=== PATIENT | female | born 1930 | race Two or more races ===

== ENCOUNTER 2020-03-14 16:38 | Inpatient (IN) | payer OTHER ==
[~2020-03-14] VITALS: Ht 157.5 cm; Wt 70.0 kg
[2020-03-14] MEDS ORDERED: SODIUM CHLORIDE 0.9% 1,000 ML IVB ONE (17:00)
[2020-03-14] MEDS ORDERED: ONDANSETRON HCL 4 MG/2 ML VIAL ONE (18:18)
[2020-03-14] MEDS ORDERED: MORPHINE SULF INJ 2 MG/ML SYRINGE 1ML ONE (18:18)
[2020-03-14 18:54] LABS: Basophils # (auto) 0 10 ^3/uL (0-0.2); Basophils % (auto) 0.3 % (0.0-2.0); Eosinophils # (auto) 0 10 ^3/uL (0-0.8); Eosinophils % (auto) 0.1 % (0.0-7.0); Hematocrit 37.4 % (36.0-46.0); Hemoglobin 12.3 g/dL (12.2-16.2); Lymphocytes # (auto) 0.8 10 ^3/uL (0.4-5.4); Lymphocytes % (auto) 6.5 % (10.0-50.0); Mean Corpuscular Hemoglobin 32.1 pg (28.0-32.0); Mean Corpuscular Hgb Conc. 32.9 g/dL (32.0-36.0); Mean Corpuscular Volume 97.6 fL (80.0-100.0); Monocytes # (auto) 0.8 10 ^3/uL (0-1.3); Monocytes % (auto) 6.3 % (0.0-12.0); Neutrophils # (auto) 11.2 10 ^3/uL (1.6-8.6); Neutrophils % (auto) 86.8 % (37.0-80.0); Platelet Count (auto) 249 10^3/uL (140-450); Red Blood Cells 3.83 10^6/uL (4.0-5.20); Red Cell Distribution Width 13.1 % (11.8-14.3); White Blood Cell 12.8 10^3/uL (4.4-10.8)
[2020-03-14 19:03] LABS: Urine Bacteria NONE SEEN /hpf (None Seen); Urine Blood TRACE /uL (Negative); Urine Mucus FEW (None Seen); Urine Specific Gravity 1.023 (1.001-1.035); Urine WBC 2 /hpf (0 - 5)
[2020-03-14 19:13] LABS: INR 1.02 (0.9-1.15); Partial Thromboplastin Time 22.2 sec (23.0-31.2)
[2020-03-14] MEDS ORDERED: MORPHINE SULF INJ 2 MG/ML SYRINGE 1ML IV ONE (19:15)
[2020-03-14] MEDS ORDERED: ONDANSETRON HCL 4 MG/2 ML VIAL IV ONE (19:15)
[2020-03-14 19:35] LABS: Albumin 3.7 g/dL (3.4-5.0); Anion Gap 6 (5-15); Blood Urea Nitrogen 18 mg/dL (7-18); Calcium 8.5 mg/dL (8.5-10.1); Carbon Dioxide 28 mmol/L (21-32); Chloride 106 mmol/L (98-107); Glucose 158 mg/dL (74-106); Magnesium 2.2 mg/dL (1.6-2.6); Potassium 3.4 mmol/L (3.5-5.1); Sodium 140 mmol/L (136-145)
[2020-03-14 19:42] LABS: Alanine Aminotransferase 18 U/L (13-56); Alkaline Phosphatase 46 U/L (45-117); Aspartate Aminotransferase 22 U/L (15-37); BUN/Creatinine Ratio 17.5; Bilirubin, Total 0.6 mg/dL (0.2-1.0); GFR African American 65 mL/min; GFR Non-African American 54 mL/min; Total Protein 6.4 g/dL (6.4-8.2)
[2020-03-14] MEDS ORDERED: MAGNESIUM OXIDE 400 MG TAB PO ONE (19:45)
[2020-03-14] MEDS ORDERED: ACETAMINOPHEN 325 MG TAB PO PRN (21:45)
[2020-03-14] MEDS ORDERED: DOCUSATE SOD 100 MG CAP PO PRN (21:45)
[2020-03-14] MEDS: SODIUM CHLORIDE 0.9% 1,000 ML IV SCH (21:45)
[2020-03-14] MEDS ORDERED: MORPHINE SULF INJ 2 MG/ML SYRINGE 1ML IV PRN (21:45)
[2020-03-14] MEDS ORDERED: NITROGLYCERIN 0.4 MG SL TAB SL PRN (21:45)
[2020-03-14] MEDS ORDERED: POTASSIUM CHL 20 Meq TABLET PO ONE (22:00)
[2020-03-14] MEDS: ONDANSETRON HCL 4 MG/2 ML VIAL IV PRN (22:17)
[2020-03-14] MEDS: MORPHINE SULFATE 4 MG/ML SYR/VIAL IV PRN ×2 (22:17→22:57)
[2020-03-14] MEDS: ASCORBIC ACID 500 MG TAB PO SCH (22:21)
[2020-03-15] MEDS: MORPHINE SULFATE 4 MG/ML SYR/VIAL IV PRN (02:43)
[2020-03-15] MEDS: ONDANSETRON HCL 4 MG/2 ML VIAL IV PRN ×3 (03:01→21:07)
[2020-03-15 05:00] VITALS: BP 142/57
[2020-03-15 07:20] LABS: Basophils # (auto) 0 10 ^3/uL (0-0.2); Basophils % (auto) 0.1 % (0.0-2.0); Eosinophils # (auto) 0 10 ^3/uL (0-0.8); Hematocrit 30.7 % (36.0-46.0); Hemoglobin 10.1 g/dL (12.2-16.2); Lymphocytes # (auto) 0.7 10 ^3/uL (0.4-5.4); Lymphocytes % (auto) 7.1 % (10.0-50.0); Mean Corpuscular Hemoglobin 32.3 pg (28.0-32.0); Mean Corpuscular Volume 97.8 fL (80.0-100.0); Monocytes # (auto) 0.8 10 ^3/uL (0-1.3); Monocytes % (auto) 8.2 % (0.0-12.0); Neutrophils # (auto) 8.1 10 ^3/uL (1.6-8.6); Neutrophils % (auto) 84.6 % (37.0-80.0); Platelet Count (auto) 217 10^3/uL (140-450); Red Blood Cells 3.14 10^6/uL (4.0-5.20); Red Cell Distribution Width 13.1 % (11.8-14.3); White Blood Cell 9.6 10^3/uL (4.4-10.8)
[2020-03-15 07:23] LABS: Albumin 3.1 g/dL (3.4-5.0)
[2020-03-15 07:32] LABS: Bilirubin, Total 0.7 mg/dL (0.2-1.0); Calcium 8.2 mg/dL (8.5-10.1); Total Protein 5.7 g/dL (6.4-8.2)
[2020-03-15] MEDS ORDERED: ALEN70TA2 PO (08:43)
[2020-03-15] MEDS ORDERED: ATO40T PO (08:43)
[2020-03-15] MEDS ORDERED: MAGN400T40 PO (08:43)
[2020-03-15 09:00] VITALS: BP 130/62
[2020-03-15] MEDS: ASCORBIC ACID 500 MG TAB PO SCH ×2 (09:44→22:00)
[2020-03-15] MEDS: MULTIPLE VITAMIN TAB PO SCH (09:44)
[2020-03-15] MEDS: PANTOPRAZOLE 40 MG/10 ML VIAL INJ IV SCH (09:45)
[2020-03-15] MEDS: ZINC SULFATE 220mg CAP or TAB PO SCH (10:00)
[2020-03-15] MEDS ORDERED: ENOXAPARIN SOD 40 MG/0.4 ML SYRINGE SC SCH (10:00)
[2020-03-15] MEDS ORDERED: VANCOMYCIN 1GM/250ML 250 ML IV SCH (10:00)
[2020-03-15] MEDS: HYDROmorphone HCL 2 MG/ML VL IV PRN ×2 (10:35→21:06)
[2020-03-15] MEDS ORDERED: levoFLOXacin 500MG 100 ML IV ONE (11:30)
[2020-03-15 13:00] VITALS: BP 122/50
[2020-03-15] MEDS: SODIUM CHLORIDE 0.9% 1,000 ML IV SCH (15:21)
[2020-03-15 17:00] VITALS: BP 116/45
[2020-03-15 22:00] VITALS: BP 99/47
[2020-03-15] MEDS: ATORVASTATIN 20 MG TAB PO SCH (22:00)
[2020-03-16 05:00] VITALS: BP 103/45
[2020-03-16] MEDS: ONDANSETRON HCL 4 MG/2 ML VIAL IV PRN ×2 (07:04→08:20)
[2020-03-16] MEDS: HYDROmorphone HCL 2 MG/ML VL IV PRN ×2 (07:04→17:45)
[2020-03-16] MEDS: SODIUM CHLORIDE 0.9% 1,000 ML IV SCH ×2 (07:05→23:45)
[2020-03-16 09:00] VITALS: BP 101/47
[2020-03-16] MEDS: ASCORBIC ACID 500 MG TAB PO SCH ×2 (10:00→21:51)
[2020-03-16] MEDS ORDERED: levoFLOXacin 500MG 100 ML IV SCH (10:00)
[2020-03-16] MEDS: MAGNESIUM OXIDE 400 MG TAB PO SCH (10:29)
[2020-03-16] MEDS: ZINC SULFATE 220mg CAP or TAB PO SCH (10:29)
[2020-03-16] MEDS: PANTOPRAZOLE 40 MG/10 ML VIAL INJ IV SCH (10:29)
[2020-03-16] MEDS: levoFLOXacin 250MG 50 ML IV SCH (10:29)
[2020-03-16] MEDS: MULTIPLE VITAMIN TAB PO SCH (10:29)
[2020-03-16 13:00] VITALS: BP 114/45
[2020-03-16 16:41] VITALS: BP 103/45
[2020-03-16 21:00] VITALS: BP 113/48
[2020-03-16] MEDS: ATORVASTATIN 20 MG TAB PO SCH (21:51)
[2020-03-16] MEDS: HYDROcodone-ACET 5/325MG TAB PO PRN (22:33)
[2020-03-17] VITALS (13 sets, daily range): BP systolic 101–125; BP diastolic 41–57
[2020-03-17 07:57] LABS: Basophils # (auto) 0 10 ^3/uL (0-0.2); Monocytes # (auto) 1.2 10 ^3/uL (0-1.3); Monocytes % (auto) 8.8 % (0.0-12.0)
[2020-03-17 07:58] LABS: Basophils % (auto) 0.2 % (0.0-2.0); Eosinophils # (auto) 0 10 ^3/uL (0-0.8); Eosinophils % (auto) 0.4 % (0.0-7.0); Hematocrit 22.8 % (36.0-46.0); Hemoglobin 7.7 g/dL (12.2-16.2); Lymphocytes # (auto) 1.1 10 ^3/uL (0.4-5.4); Lymphocytes % (auto) 8.5 % (10.0-50.0); Mean Corpuscular Hemoglobin 32.7 pg (28.0-32.0); Mean Corpuscular Hgb Conc. 33.6 g/dL (32.0-36.0); Mean Corpuscular Volume 97.4 fL (80.0-100.0); Neutrophils # (auto) 10.7 10 ^3/uL (1.6-8.6); Neutrophils % (auto) 82.1 % (37.0-80.0); Platelet Count (auto) 162 10^3/uL (140-450); Red Blood Cells 2.34 10^6/uL (4.0-5.20); Red Cell Distribution Width 13.3 % (11.8-14.3)
[2020-03-17] MEDS: MAGNESIUM OXIDE 400 MG TAB PO SCH (09:06)
[2020-03-17] MEDS: PANTOPRAZOLE 40 MG/10 ML VIAL INJ IV SCH (09:06)
[2020-03-17] MEDS: ZINC SULFATE 220mg CAP or TAB PO SCH (09:06)
[2020-03-17] MEDS: MULTIPLE VITAMIN TAB PO SCH (09:06)
[2020-03-17] MEDS: levoFLOXacin 250MG 50 ML IV SCH (09:06)
[2020-03-17] MEDS: ASCORBIC ACID 500 MG TAB PO SCH ×2 (09:07→22:11)
[2020-03-17] MEDS: HYDROcodone-ACET 5/325MG TAB PO PRN ×2 (11:34→15:54)
[2020-03-17] MEDS ORDERED: ADENOSINE 65 MG in GIVE UN-DILUTED 0 ML IV STA (11:37)
[2020-03-17] MEDS: HYDROmorphone HCL 2 MG/ML VL IV PRN ×2 (13:43→22:13)
[2020-03-17] MEDS: SODIUM CHLORIDE 0.9% 1,000 ML IV SCH ×2 (16:06→23:45)
[2020-03-17] MEDS: ATORVASTATIN 20 MG TAB PO SCH (22:11)
[2020-03-17] MEDS: ONDANSETRON HCL 4 MG/2 ML VIAL IV PRN (22:13)
[2020-03-18 05:00] VITALS: BP 124/57
[2020-03-18 05:43] LABS: Basophils # (auto) 0 10 ^3/uL (0-0.2); Basophils % (auto) 0.3 % (0.0-2.0); Eosinophils # (auto) 0.2 10 ^3/uL (0-0.8); Eosinophils % (auto) 1.8 % (0.0-7.0); Hemoglobin 9.7 g/dL (12.2-16.2); Lymphocytes # (auto) 1.2 10 ^3/uL (0.4-5.4); Lymphocytes % (auto) 10.1 % (10.0-50.0); Mean Corpuscular Hemoglobin 31.9 pg (28.0-32.0); Mean Corpuscular Hgb Conc. 33.3 g/dL (32.0-36.0); Mean Corpuscular Volume 95.7 fL (80.0-100.0); Monocytes # (auto) 1.1 10 ^3/uL (0-1.3); Monocytes % (auto) 9.5 % (0.0-12.0); Neutrophils # (auto) 9.4 10 ^3/uL (1.6-8.6); Neutrophils % (auto) 78.3 % (37.0-80.0); Platelet Count (auto) 167 10^3/uL (140-450); Red Blood Cells 3.03 10^6/uL (4.0-5.20); Red Cell Distribution Width 15.3 % (11.8-14.3); White Blood Cell 12.1 10^3/uL (4.4-10.8)
[2020-03-18 06:06] LABS: Albumin 2.2 g/dL (3.4-5.0); Calcium 7.7 mg/dL (8.5-10.1); Potassium 3.9 mmol/L (3.5-5.1)
[2020-03-18 06:09] LABS: BUN/Creatinine Ratio 24.1; Bilirubin, Total 1.1 mg/dL (0.2-1.0); Total Protein 5.3 g/dL (6.4-8.2)
[2020-03-18] MEDS: HYDROmorphone HCL 2 MG/ML VL IV PRN ×3 (06:44→21:18)
[2020-03-18] MEDS: ONDANSETRON HCL 4 MG/2 ML VIAL IV PRN (06:44)
[2020-03-18 09:00] VITALS: BP 107/48
[2020-03-18] MEDS: PANTOPRAZOLE 40 MG TAB PO SCH (11:46)
[2020-03-18] MEDS: ASCORBIC ACID 500 MG TAB PO SCH ×2 (11:46→21:17)
[2020-03-18] MEDS: MULTIPLE VITAMIN TAB PO SCH (11:46)
[2020-03-18] MEDS: SODIUM CHLORIDE 0.9% 1,000 ML IV SCH ×3 (11:46→23:45)
[2020-03-18] MEDS: levoFLOXacin 250 MG TAB PO SCH (11:46)
[2020-03-18] MEDS: ZINC SULFATE 220mg CAP or TAB PO SCH (11:46)
[2020-03-18] MEDS: MAGNESIUM OXIDE 400 MG TAB PO SCH (11:46)
[2020-03-18] MEDS: HYDROcodone-ACET 5/325MG TAB PO PRN (11:47)
[2020-03-18] MEDS ORDERED: ADENOSINE 67 MG in GIVE UN-DILUTED 0 ML IV STA (12:40)
[2020-03-18 13:00] VITALS: BP 127/55
[2020-03-18 16:19] VITALS: BP 111/47
[2020-03-18] MEDS: ATORVASTATIN 20 MG TAB PO SCH (21:18)
[2020-03-18 22:00] VITALS: BP 120/54
[2020-03-19] VITALS (7 sets, daily range): BP systolic 110–156; BP diastolic 44–81
[2020-03-19] MEDS: HYDROcodone-ACET 5/325MG TAB PO PRN ×2 (00:49→09:45)
[2020-03-19] MEDS: HYDROmorphone HCL 2 MG/ML VL IV PRN (06:03)
[2020-03-19] MEDS: SODIUM CHLORIDE 0.9% 1,000 ML IV SCH ×3 (07:45→23:45)
[2020-03-19] MEDS ORDERED: CARVEDILOL 3.125 MG TAB PO ONE (09:15)
[2020-03-19] MEDS ORDERED: ATORVASTATIN 20 MG TAB PO ONE (09:15)
[2020-03-19 09:31] LABS: Basophils # (auto) 0.1 10 ^3/uL (0-0.2); Basophils % (auto) 0.6 % (0.0-2.0); Eosinophils # (auto) 0.1 10 ^3/uL (0-0.8); Eosinophils % (auto) 0.8 % (0.0-7.0); Hematocrit 32.5 % (36.0-46.0); Hemoglobin 10.7 g/dL (12.2-16.2); Lymphocytes # (auto) 0.8 10 ^3/uL (0.4-5.4); Lymphocytes % (auto) 6.8 % (10.0-50.0); Mean Corpuscular Hemoglobin 31.2 pg (28.0-32.0); Mean Corpuscular Hgb Conc. 32.9 g/dL (32.0-36.0); Mean Corpuscular Volume 94.9 fL (80.0-100.0); Monocytes # (auto) 1.1 10 ^3/uL (0-1.3); Monocytes % (auto) 9.1 % (0.0-12.0); Neutrophils # (auto) 9.5 10 ^3/uL (1.6-8.6); Neutrophils % (auto) 82.7 % (37.0-80.0); Nucleated Red Blood Cells % 0.1 %; Platelet Count (auto) 226 10^3/uL (140-450); Red Blood Cells 3.43 10^6/uL (4.0-5.20); Red Cell Distribution Width 15.1 % (11.8-14.3); White Blood Cell 11.5 10^3/uL (4.4-10.8)
[2020-03-19 09:46] LABS: INR 1.05 (0.9-1.15); Partial Thromboplastin Time 25.9 sec (23.0-31.2)
[2020-03-19 09:48] LABS: Albumin 2.1 g/dL (3.4-5.0); Calcium 8.2 mg/dL (8.5-10.1); Potassium 3.9 mmol/L (3.5-5.1)
[2020-03-19 09:52] LABS: BUN/Creatinine Ratio 25.4; Bilirubin, Total 0.8 mg/dL (0.2-1.0); Total Protein 5.8 g/dL (6.4-8.2)
[2020-03-19] MEDS: PANTOPRAZOLE 40 MG TAB PO SCH (10:00)
[2020-03-19] MEDS: ZINC SULFATE 220mg CAP or TAB PO SCH (10:00)
[2020-03-19] MEDS: MULTIPLE VITAMIN TAB PO SCH (10:00)
[2020-03-19] MEDS: MAGNESIUM OXIDE 400 MG TAB PO SCH (10:00)
[2020-03-19] MEDS: ASCORBIC ACID 500 MG TAB PO SCH ×2 (10:00→21:50)
[2020-03-19] MEDS: levoFLOXacin 250 MG TAB PO SCH (10:00)
[2020-03-19] MEDS ORDERED: TETRACAINE 1% INJ 2 ML VIAL IJ ONE (14:54)
[2020-03-19] MEDS ORDERED: BUPIVACAINE 0.25% INJ 50ML VIAL ONE (14:56)
[2020-03-19] MEDS ORDERED: LIDOCAINE 1% HCL (LOCAL ANESTH.) INJ 20ML MDV ONE (14:56)
[2020-03-19] MEDS ORDERED: BUPIVACAINE/DEXTROSE MPF 0.75% 2 ML AMP IT ONE (15:01)
[2020-03-19] MEDS ORDERED: MIDAZOLAM HCL 1MG/1ML-2 ML VIAL ONE (15:01)
[2020-03-19] MEDS ORDERED: ONDANSETRON HCL 4 MG/2 ML VIAL ONE (15:01)
[2020-03-19] MEDS ORDERED: EPINEPHrine HCL 1 MG/1 ML AMP ONE (15:01)
[2020-03-19] MEDS ORDERED: fentaNYL CITRATE 100 MCG/2 ML VL ONE (15:01)
[2020-03-19] MEDS ORDERED: MORPHINE SULF(PF) 0.5MG/ML 10ML VIAL ONE (15:01)
[2020-03-19] MEDS ORDERED: VANCOMYCIN HCL 1000 MG VL ONE (15:20)
[2020-03-19] MEDS: LACTATED RINGER'S 1,000 ML IV SCH (18:15)
[2020-03-19] MEDS ORDERED: IPRATROPIUM BROM 0.5 MG/2.5ML INH SOL NEB ONE (19:15)
[2020-03-19] MEDS ORDERED: ALBUTEROL SULF 2.5 MG/0.5ML(0.5%) NEB SOLN NEB ONE (19:15)
[2020-03-19] MEDS ORDERED: HYDROmorphone HCL 2 MG/ML VL IV PRN (21:00)
[2020-03-19] MEDS ORDERED: ONDANSETRON HCL 4 MG/2 ML VIAL IV PRN (21:00)
[2020-03-19] MEDS ORDERED: NALOXONE HCL 0.4 MG/ML VIAL IV PRN (21:00)
[2020-03-19] MEDS ORDERED: MORPHINE SULFATE 4 MG/ML SYR/VIAL IV PRN (21:00)
[2020-03-19] MEDS: ATORVASTATIN 20 MG TAB PO SCH (21:50)
[2020-03-19] MEDS: VANCOMYCIN 1GM/250ML 250 ML IV SCH (21:51)
[2020-03-20] VITALS (23 sets, daily range): BP systolic 100–131; BP diastolic 40–78
[2020-03-20] MEDS: LACTATED RINGER'S 1,000 ML IV SCH ×3 (01:39→21:46)
[2020-03-20 05:53] LABS: Basophils # (auto) 0 10 ^3/uL (0-0.2); Basophils % (auto) 0.5 % (0.0-2.0); Eosinophils # (auto) 0.1 10 ^3/uL (0-0.8); Eosinophils % (auto) 1.9 % (0.0-7.0); Hematocrit 24.2 % (36.0-46.0); Hemoglobin 8.1 g/dL (12.2-16.2); Lymphocytes # (auto) 0.7 10 ^3/uL (0.4-5.4); Lymphocytes % (auto) 9.3 % (10.0-50.0); Mean Corpuscular Hemoglobin 31.7 pg (28.0-32.0); Mean Corpuscular Hgb Conc. 33.5 g/dL (32.0-36.0); Mean Corpuscular Volume 94.7 fL (80.0-100.0); Monocytes # (auto) 1.1 10 ^3/uL (0-1.3); Monocytes % (auto) 13.7 % (0.0-12.0); Neutrophils # (auto) 5.8 10 ^3/uL (1.6-8.6); Neutrophils % (auto) 74.6 % (37.0-80.0); Nucleated Red Blood Cells % 0.1 %; Platelet Count (auto) 192 10^3/uL (140-450); Red Blood Cells 2.56 10^6/uL (4.0-5.20); Red Cell Distribution Width 14.4 % (11.8-14.3); White Blood Cell 7.7 10^3/uL (4.4-10.8)
[2020-03-20 06:12] LABS: Potassium 4.3 mmol/L (3.5-5.1)
[2020-03-20 06:16] LABS: Albumin 1.8 g/dL (3.4-5.0); BUN/Creatinine Ratio 25.7; Calcium 7.4 mg/dL (8.5-10.1)
[2020-03-20 06:19] LABS: Bilirubin, Total 0.7 mg/dL (0.2-1.0); Total Protein 4.7 g/dL (6.4-8.2)
[2020-03-20] MEDS: SODIUM CHLORIDE 0.9% 1,000 ML IV SCH ×2 (07:45→11:39)
[2020-03-20] MEDS: MAGNESIUM OXIDE 400 MG TAB PO SCH (10:00)
[2020-03-20] MEDS: PANTOPRAZOLE 40 MG TAB PO SCH (10:11)
[2020-03-20] MEDS: MULTIPLE VITAMIN TAB PO SCH (10:11)
[2020-03-20] MEDS: levoFLOXacin 250 MG TAB PO SCH (10:11)
[2020-03-20] MEDS: ZINC SULFATE 220mg CAP or TAB PO SCH (10:11)
[2020-03-20] MEDS: ASCORBIC ACID 500 MG TAB PO SCH ×2 (10:11→21:24)
[2020-03-20] MEDS: VANCOMYCIN 1GM/250ML 250 ML IV SCH (10:12)
[2020-03-20] MEDS: ENOXAPARIN SOD 40 MG/0.4 ML SYRINGE SC SCH (10:12)
[2020-03-20] MEDS: HYDROcodone-ACET 5/325MG TAB PO PRN ×2 (11:38→15:43)
[2020-03-20] MEDS: HYDROmorphone HCL 2 MG/ML VL IV PRN ×2 (12:39→21:47)
[2020-03-20] MEDS: ATORVASTATIN 20 MG TAB PO SCH (21:23)
[2020-03-21] VITALS (14 sets, daily range): BP systolic 104–118; BP diastolic 39–47
[2020-03-21] MEDS: HYDROmorphone HCL 2 MG/ML VL IV PRN ×3 (02:38→18:06)
[2020-03-21 05:59] LABS: Basophils # (auto) 0 10 ^3/uL (0-0.2); Eosinophils # (auto) 0.2 10 ^3/uL (0-0.8); Monocytes # (auto) 0.9 10 ^3/uL (0-1.3); Nucleated Red Blood Cells % 0.1 %
[2020-03-21 06:01] LABS: Basophils % (auto) 0.4 % (0.0-2.0); Eosinophils % (auto) 2.1 % (0.0-7.0); Hematocrit 21.8 % (36.0-46.0); Hemoglobin 7.2 g/dL (12.2-16.2); Lymphocytes # (auto) 0.8 10 ^3/uL (0.4-5.4); Lymphocytes % (auto) 9.9 % (10.0-50.0); Mean Corpuscular Hemoglobin 31.1 pg (28.0-32.0); Mean Corpuscular Volume 94.3 fL (80.0-100.0); Monocytes % (auto) 11.7 % (0.0-12.0); Neutrophils % (auto) 75.9 % (37.0-80.0); Platelet Count (auto) 215 10^3/uL (140-450); Red Blood Cells 2.31 10^6/uL (4.0-5.20); Red Cell Distribution Width 14.2 % (11.8-14.3)
[2020-03-21 06:21] LABS: Calcium 7.6 mg/dL (8.5-10.1)
[2020-03-21 06:29] LABS: Albumin 1.7 g/dL (3.4-5.0); BUN/Creatinine Ratio 24.2; Bilirubin, Total 0.6 mg/dL (0.2-1.0); Magnesium 2.4 mg/dL (1.6-2.6); Total Protein 4.6 g/dL (6.4-8.2)
[2020-03-21] MEDS: ENOXAPARIN SOD 40 MG/0.4 ML SYRINGE SC SCH (10:00)
[2020-03-21] MEDS: PANTOPRAZOLE 40 MG TAB PO SCH (10:16)
[2020-03-21] MEDS: levoFLOXacin 250 MG TAB PO SCH (10:16)
[2020-03-21] MEDS: LACTATED RINGER'S 1,000 ML IV SCH ×2 (10:17→23:49)
[2020-03-21] MEDS: MAGNESIUM OXIDE 400 MG TAB PO SCH (10:17)
[2020-03-21] MEDS ORDERED: FUROSEMIDE 20 MG/2 ML VIAL IV ONE (14:45)
[2020-03-21] MEDS ORDERED: IOHEXOL 350 MG/ML 100ML IJ ONE (17:30)
[2020-03-21] MEDS: ATORVASTATIN 20 MG TAB PO SCH (21:57)
[2020-03-21] MEDS: HYDROcodone-ACET 5/325MG TAB PO PRN (21:58)
[2020-03-22] VITALS (9 sets, daily range): BP systolic 103–122; BP diastolic 38–58
[2020-03-22] MEDS: HYDROmorphone HCL 2 MG/ML VL IV PRN ×2 (07:26→20:53)
[2020-03-22 07:37] LABS: Basophils # (auto) 0.1 10 ^3/uL (0-0.2); Basophils % (auto) 0.6 % (0.0-2.0); Eosinophils # (auto) 0.1 10 ^3/uL (0-0.8); Eosinophils % (auto) 0.8 % (0.0-7.0); Hematocrit 27.3 % (36.0-46.0); Hemoglobin 9.1 g/dL (12.2-16.2); Lymphocytes # (auto) 0.9 10 ^3/uL (0.4-5.4); Lymphocytes % (auto) 9.9 % (10.0-50.0); Mean Corpuscular Hemoglobin 30.8 pg (28.0-32.0); Mean Corpuscular Hgb Conc. 33.2 g/dL (32.0-36.0); Monocytes % (auto) 11.3 % (0.0-12.0); Neutrophils # (auto) 6.7 10 ^3/uL (1.6-8.6); Neutrophils % (auto) 77.4 % (37.0-80.0); Nucleated Red Blood Cells % 0.1 %; Platelet Count (auto) 120 10^3/uL (140-450); Red Blood Cells 2.94 10^6/uL (4.0-5.20); Red Cell Distribution Width 16.2 % (11.8-14.3); White Blood Cell 8.7 10^3/uL (4.4-10.8)
[2020-03-22 08:03] LABS: Chloride 101 mmol/L (98-107); Potassium 4.1 mmol/L (3.5-5.1); Sodium 135 mmol/L (136-145)
[2020-03-22 08:16] LABS: Alanine Aminotransferase 22 U/L (13-56); Albumin 1.7 g/dL (3.4-5.0); Anion Gap 6 (5-15); Aspartate Aminotransferase 48 U/L (15-37); BUN/Creatinine Ratio 21.5; Blood Urea Nitrogen 14 mg/dL (7-18); Calcium 7.9 mg/dL (8.5-10.1); Carbon Dioxide 28 mmol/L (21-32); GFR African American 111 mL/min; GFR Non-African American 91 mL/min; Glucose 81 mg/dL (74-106); Magnesium 2.2 mg/dL (1.6-2.6)
[2020-03-22 08:18] LABS: Alkaline Phosphatase 40 U/L (45-117); Bilirubin, Total 0.9 mg/dL (0.2-1.0); Total Protein 5.1 g/dL (6.4-8.2)
[2020-03-22] MEDS: ENOXAPARIN SOD 40 MG/0.4 ML SYRINGE SC SCH (10:55)
[2020-03-22] MEDS: PANTOPRAZOLE 40 MG TAB PO SCH (10:55)
[2020-03-22] MEDS: MAGNESIUM OXIDE 400 MG TAB PO SCH (10:55)
[2020-03-22] MEDS: levoFLOXacin 250 MG TAB PO SCH (10:55)
[2020-03-22] MEDS ORDERED: ASCORBIC ACID 500 MG TAB PO ONE (12:29)
[2020-03-22] MEDS ORDERED: DOXYCYCLINE 100 MG TAB/CAP PO ONE (12:30)
[2020-03-22] MEDS ORDERED: ZINC SULFATE 220mg CAP or TAB PO ONE (12:30)
[2020-03-22] MEDS ORDERED: DexAMETHasone SOD PHOS 10MG/1ML VIAL INJ IV ONE (12:30)
[2020-03-22] MEDS ORDERED: CHOLECALCIFEROL (VITD3) 2,000 UNIT CAP PO ONE (12:30)
[2020-03-22] MEDS ORDERED: POTASSIUM CHL 10 Meq TABLET PO ONE (12:45)
[2020-03-22] MEDS ORDERED: FUROSEMIDE 20 MG/2 ML VIAL IV ONE (12:45)
[2020-03-22] MEDS: ALBUTEROL SULF HFA 90MCG INH 200DOSE IN SCH ×2 (15:03→22:30)
[2020-03-22] MEDS: ONDANSETRON HCL 4 MG/2 ML VIAL IV PRN (16:02)
[2020-03-22] MEDS ORDERED: REMDESIVIR 200 MG in NS 210ml LOADING DOSE ADULT IV ONE (18:00)
[2020-03-22] MEDS: DOXYCYCLINE 100 MG TAB/CAP PO SCH (21:34)
[2020-03-22] MEDS: ASCORBIC ACID 500 MG TAB PO SCH (21:35)
[2020-03-22] MEDS: BUDESONIDE (INHALATION) 180 MCG IH IN SCH (22:30)
[2020-03-23] VITALS (8 sets, daily range): BP systolic 118–138; BP diastolic 48–60
[2020-03-23] MEDS: HYDROmorphone HCL 2 MG/ML VL IV PRN ×2 (02:56→19:10)
[2020-03-23] MEDS: ONDANSETRON HCL 4 MG/2 ML VIAL IV PRN ×4 (03:34→18:30)
[2020-03-23] MEDS: HYDROcodone-ACET 5/325MG TAB PO PRN (04:35)
[2020-03-23 06:37] LABS: Hemoglobin 7.8 g/dL (12.2-16.2)
[2020-03-23] MEDS: ALBUTEROL SULF HFA 90MCG INH 200DOSE IN SCH ×3 (07:01→21:33)
[2020-03-23] MEDS: BUDESONIDE (INHALATION) 180 MCG IH IN SCH ×2 (07:01→21:33)
[2020-03-23 07:05] LABS: Potassium 3.6 mmol/L (3.5-5.1)
[2020-03-23 07:30] LABS: BUN/Creatinine Ratio 33.3; Calcium 7.5 mg/dL (8.5-10.1)
[2020-03-23] MEDS: ASCORBIC ACID 500 MG TAB PO SCH ×2 (10:00→22:58)
[2020-03-23] MEDS: PANTOPRAZOLE 40 MG TAB PO SCH (10:00)
[2020-03-23] MEDS: CHOLECALCIFEROL (VITD3) 2,000 UNIT CAP PO SCH (10:00)
[2020-03-23] MEDS: ZINC SULFATE 220mg CAP or TAB PO SCH (10:00)
[2020-03-23] MEDS: FUROSEMIDE 20 MG/2 ML VIAL IV SCH (11:04)
[2020-03-23] MEDS: DexAMETHasone SOD PHOS 10MG/1ML VIAL INJ IV SCH (11:04)
[2020-03-23] MEDS: POTASSIUM CHL 10 Meq TABLET PO SCH (11:05)
[2020-03-23] MEDS: MAGNESIUM OXIDE 400 MG TAB PO SCH (11:05)
[2020-03-23] MEDS: DOXYCYCLINE 100 MG TAB/CAP PO SCH ×2 (11:05→22:58)
[2020-03-23] MEDS: ENOXAPARIN SOD 40 MG/0.4 ML SYRINGE SC SCH (14:00)
[2020-03-23] MEDS: Ensure HIGH Protein Chocolate 8oz Bottle PO SCH (14:00)
[2020-03-23] MEDS: REMDESIVIR 100mg in NS 230ml DAILYx4DAYS (NO VENT) IV SCH (17:53)
[2020-03-24] MEDS: ONDANSETRON HCL 4 MG/2 ML VIAL IV PRN ×3 (01:55→16:36)
[2020-03-24] MEDS: diphenhdrAMINE HCL 50 MG/1 ML VL IV PRN ×3 (02:51→21:30)
[2020-03-24 05:00] VITALS: BP 152/58
[2020-03-24] MEDS: HYDROmorphone HCL 2 MG/ML VL IV PRN ×2 (06:51→16:36)
[2020-03-24 06:58] LABS: Potassium 3.9 mmol/L (3.5-5.1)
[2020-03-24 07:18] LABS: Albumin 1.8 g/dL (3.4-5.0); BUN/Creatinine Ratio 30.1; Bilirubin, Total 0.6 mg/dL (0.2-1.0); Calcium 7.7 mg/dL (8.5-10.1); Magnesium 2.2 mg/dL (1.6-2.6)
[2020-03-24] MEDS: ALBUTEROL SULF HFA 90MCG INH 200DOSE IN SCH ×3 (07:40→21:02)
[2020-03-24] MEDS: BUDESONIDE (INHALATION) 180 MCG IH IN SCH ×2 (07:43→21:02)
[2020-03-24 08:30] VITALS: BP 123/63
[2020-03-24] MEDS: CHOLECALCIFEROL (VITD3) 2,000 UNIT CAP PO SCH (10:00)
[2020-03-24] MEDS: ASCORBIC ACID 500 MG TAB PO SCH ×2 (10:00→21:31)
[2020-03-24] MEDS: PANTOPRAZOLE 40 MG TAB PO SCH (10:00)
[2020-03-24] MEDS: MAGNESIUM OXIDE 400 MG TAB PO SCH (10:00)
[2020-03-24] MEDS: POTASSIUM CHL 10 Meq TABLET PO SCH (10:00)
[2020-03-24] MEDS: DOXYCYCLINE 100 MG TAB/CAP PO SCH ×2 (10:00→21:31)
[2020-03-24] MEDS: ZINC SULFATE 220mg CAP or TAB PO SCH (10:00)
[2020-03-24] MEDS: DexAMETHasone SOD PHOS 10MG/1ML VIAL INJ IV SCH (10:26)
[2020-03-24] MEDS: FUROSEMIDE 20 MG/2 ML VIAL IV SCH (10:26)
[2020-03-24] MEDS: ENOXAPARIN SOD 40 MG/0.4 ML SYRINGE SC SCH (10:27)
[2020-03-24] MEDS: Ensure HIGH Protein Chocolate 8oz Bottle PO SCH ×3 (10:27→19:17)
[2020-03-24 13:00] VITALS: BP 126/46
[2020-03-24 17:00] VITALS: BP 116/60
[2020-03-24] MEDS: REMDESIVIR 100mg in NS 230ml DAILYx4DAYS (NO VENT) IV SCH (17:15)
[2020-03-24 20:15] VITALS: BP 132/54
[2020-03-24] MEDS: HYDROcodone-ACET 5/325MG TAB PO PRN (20:24)
[2020-03-24 22:00] VITALS: BP_SYST 121; BP_SYST 141; BP_DIAS 51; BP_DIAS 57
[2020-03-25] MEDS ORDERED: TEMAZEPAM 15 MG CAP PO ONE (00:45)
[2020-03-25 05:00] VITALS: BP 110/52
[2020-03-25] MEDS: BUDESONIDE (INHALATION) 180 MCG IH IN SCH ×2 (06:56→20:22)
[2020-03-25] MEDS: ALBUTEROL SULF HFA 90MCG INH 200DOSE IN SCH ×3 (06:56→20:22)
[2020-03-25 07:28] LABS: Basophils # (auto) 0 10 ^3/uL (0-0.2); Basophils % (auto) 0.4 % (0.0-2.0); Eosinophils # (auto) 0 10 ^3/uL (0-0.8); Eosinophils % (auto) 0.1 % (0.0-7.0); Hematocrit 26.5 % (36.0-46.0); Lymphocytes # (auto) 1.7 10 ^3/uL (0.4-5.4); Lymphocytes % (auto) 17.5 % (10.0-50.0); Mean Corpuscular Hemoglobin 30.9 pg (28.0-32.0); Mean Corpuscular Hgb Conc. 33.9 g/dL (32.0-36.0); Mean Corpuscular Volume 91.1 fL (80.0-100.0); Monocytes # (auto) 0.8 10 ^3/uL (0-1.3); Monocytes % (auto) 8.4 % (0.0-12.0); Neutrophils % (auto) 73.6 % (37.0-80.0); Nucleated Red Blood Cells % 0.1 %; Platelet Count (auto) 365 10^3/uL (140-450); Red Blood Cells 2.91 10^6/uL (4.0-5.20); Red Cell Distribution Width 15.2 % (11.8-14.3); White Blood Cell 9.5 10^3/uL (4.4-10.8)
[2020-03-25 07:38] LABS: Albumin 1.9 g/dL (3.4-5.0); Calcium 7.8 mg/dL (8.5-10.1); Potassium 3.4 mmol/L (3.5-5.1)
[2020-03-25 07:50] LABS: Bilirubin, Total 0.8 mg/dL (0.2-1.0); Total Protein 4.9 g/dL (6.4-8.2)
[2020-03-25] MEDS: Ensure HIGH Protein Chocolate 8oz Bottle PO SCH ×3 (08:00→18:06)
[2020-03-25 08:50] VITALS: BP 118/50
[2020-03-25] MEDS: HYDROmorphone HCL 2 MG/ML VL IV PRN ×2 (09:12→18:51)
[2020-03-25] MEDS: ONDANSETRON HCL 4 MG/2 ML VIAL IV PRN ×2 (09:12→18:51)
[2020-03-25] MEDS: POTASSIUM CHL 10 Meq TABLET PO SCH (10:00)
[2020-03-25] MEDS: DOXYCYCLINE 100 MG TAB/CAP PO SCH ×2 (10:30→22:23)
[2020-03-25] MEDS: MAGNESIUM OXIDE 400 MG TAB PO SCH (10:30)
[2020-03-25] MEDS: CHOLECALCIFEROL (VITD3) 2,000 UNIT CAP PO SCH (10:30)
[2020-03-25] MEDS: PANTOPRAZOLE 40 MG TAB PO SCH (10:30)
[2020-03-25] MEDS: FUROSEMIDE 20 MG/2 ML VIAL IV SCH (10:30)
[2020-03-25] MEDS: ASCORBIC ACID 500 MG TAB PO SCH ×2 (10:30→22:23)
[2020-03-25] MEDS: ENOXAPARIN SOD 40 MG/0.4 ML SYRINGE SC SCH (10:30)
[2020-03-25] MEDS: ZINC SULFATE 220mg CAP or TAB PO SCH (10:30)
[2020-03-25] MEDS: DexAMETHasone SOD PHOS 10MG/1ML VIAL INJ IV SCH (10:30)
[2020-03-25 13:00] VITALS: BP 126/65
[2020-03-25 17:00] VITALS: BP 117/57
[2020-03-25] MEDS: REMDESIVIR 100mg in NS 230ml DAILYx4DAYS (NO VENT) IV SCH (17:45)
[2020-03-25 22:00] VITALS: BP 112/66
[2020-03-26 00:39] VITALS: BP 112/66
[2020-03-26 06:57] LABS: Potassium 3.6 mmol/L (3.5-5.1)
[2020-03-26 07:01] LABS: Albumin 2.1 g/dL (3.4-5.0); BUN/Creatinine Ratio 38.1; Calcium 7.9 mg/dL (8.5-10.1)
[2020-03-26 07:03] LABS: Bilirubin, Total 1.1 mg/dL (0.2-1.0); Total Protein 5.2 g/dL (6.4-8.2)
[2020-03-26] MEDS: BUDESONIDE (INHALATION) 180 MCG IH IN SCH ×2 (07:26→22:31)
[2020-03-26] MEDS: ALBUTEROL SULF HFA 90MCG INH 200DOSE IN SCH ×3 (07:26→22:31)
[2020-03-26] MEDS: FUROSEMIDE 20 MG/2 ML VIAL IV SCH (10:30)
[2020-03-26] MEDS: MAGNESIUM OXIDE 400 MG TAB PO SCH (11:28)
[2020-03-26] MEDS: POTASSIUM EFFERVESENT TAB 25 MEQ PO SCH (11:28)
[2020-03-26] MEDS: ENOXAPARIN SOD 40 MG/0.4 ML SYRINGE SC SCH (11:29)
[2020-03-26] MEDS: DOXYCYCLINE 100 MG TAB/CAP PO SCH ×2 (11:29→22:00)
[2020-03-26] MEDS: ASCORBIC ACID 500 MG TAB PO SCH ×2 (11:30→22:00)
[2020-03-26] MEDS: CHOLECALCIFEROL (VITD3) 2,000 UNIT CAP PO SCH (11:31)
[2020-03-26] MEDS: PANTOPRAZOLE 40 MG TAB PO SCH (11:31)
[2020-03-26] MEDS: ZINC SULFATE 220mg CAP or TAB PO SCH (11:31)
[2020-03-26] MEDS: DexAMETHasone SOD PHOS 10MG/1ML VIAL INJ IV SCH (11:32)
[2020-03-26] MEDS: Ensure HIGH Protein Chocolate 8oz Bottle PO SCH ×3 (11:32→18:48)
[2020-03-26 12:49] VITALS: BP 102/54
[2020-03-26] MEDS: ONDANSETRON HCL 4 MG/2 ML VIAL IV PRN ×2 (13:46→20:50)
[2020-03-26] MEDS: HYDROmorphone HCL 2 MG/ML VL IV PRN ×2 (13:46→20:54)
[2020-03-26 16:44] VITALS: BP 110/68
[2020-03-26] MEDS: REMDESIVIR 100mg in NS 230ml DAILYx4DAYS (NO VENT) IV SCH (21:00)
[2020-03-26] MEDS ORDERED: TEMAZEPAM 15 MG CAP PO ONE (22:00)
[2020-03-26] MEDS: FLUTICASONE PROP NASAL SPR 0.05 % (50MCG) 16GM EACHNOSTRI SCH (22:00)
[2020-03-26 22:31] VITALS: BP 117/49
[2020-03-27] MEDS: HYDROmorphone HCL 2 MG/ML VL IV PRN ×4 (03:55→23:41)
[2020-03-27 05:25] VITALS: BP 118/44
[2020-03-27] MEDS: ALBUTEROL SULF HFA 90MCG INH 200DOSE IN SCH ×3 (07:11→22:48)
[2020-03-27] MEDS: BUDESONIDE (INHALATION) 180 MCG IH IN SCH ×2 (07:11→22:49)
[2020-03-27 08:00] VITALS: BP 97/43
[2020-03-27] MEDS: Ensure HIGH Protein Chocolate 8oz Bottle PO SCH ×3 (08:00→18:00)
[2020-03-27 09:01] VITALS: BP 97/43
[2020-03-27] MEDS: ZINC SULFATE 220mg CAP or TAB PO SCH (10:00)
[2020-03-27] MEDS: ASCORBIC ACID 500 MG TAB PO SCH ×2 (10:00→21:58)
[2020-03-27] MEDS: FUROSEMIDE 20 MG/2 ML VIAL IV SCH (10:00)
[2020-03-27] MEDS: CHOLECALCIFEROL (VITD3) 2,000 UNIT CAP PO SCH (10:00)
[2020-03-27] MEDS: MAGNESIUM OXIDE 400 MG TAB PO SCH (10:00)
[2020-03-27] MEDS: DOXYCYCLINE 100 MG TAB/CAP PO SCH ×2 (10:00→21:57)
[2020-03-27] MEDS: PANTOPRAZOLE 40 MG TAB PO SCH (10:00)
[2020-03-27] MEDS: FLUTICASONE PROP NASAL SPR 0.05 % (50MCG) 16GM EACHNOSTRI SCH ×2 (10:02→21:57)
[2020-03-27] MEDS: DexAMETHasone SOD PHOS 10MG/1ML VIAL INJ IV SCH (10:02)
[2020-03-27] MEDS: POTASSIUM EFFERVESENT TAB 25 MEQ PO SCH (10:03)
[2020-03-27] MEDS: ENOXAPARIN SOD 40 MG/0.4 ML SYRINGE SC SCH (10:04)
[2020-03-27 12:41] VITALS: BP 126/46
[2020-03-27 17:24] VITALS: BP 132/61
[2020-03-27] MEDS: SALINE 0.65 % NASAL SPRAY 45ML BOTTLE EACHNOSTRI SCH ×2 (18:00→21:57)
[2020-03-27] MEDS: HYDROcodone-ACET 5/325MG TAB PO PRN (21:10)
[2020-03-27 22:00] VITALS: BP 112/46
[2020-03-28 05:00] VITALS: BP 120/59
[2020-03-28] MEDS: SALINE 0.65 % NASAL SPRAY 45ML BOTTLE EACHNOSTRI SCH ×4 (05:55→22:30)
[2020-03-28] MEDS: ALBUTEROL SULF HFA 90MCG INH 200DOSE IN SCH ×3 (07:09→22:04)
[2020-03-28] MEDS: BUDESONIDE (INHALATION) 180 MCG IH IN SCH ×2 (07:09→22:05)
[2020-03-28 07:57] LABS: Hematocrit 25.6 % (36.0-46.0); Hemoglobin 8.5 g/dL (12.2-16.2); Mean Corpuscular Hemoglobin 30.5 pg (28.0-32.0); Mean Corpuscular Hgb Conc. 33.1 g/dL (32.0-36.0); Mean Corpuscular Volume 92.1 fL (80.0-100.0); Platelet Count (auto) 573 10^3/uL (140-450); Red Blood Cells 2.78 10^6/uL (4.0-5.20); Red Cell Distribution Width 15.2 % (11.8-14.3); White Blood Cell 11.6 10^3/uL (4.4-10.8)
[2020-03-28 08:00] VITALS: BP 124/55
[2020-03-28] MEDS: Ensure HIGH Protein Chocolate 8oz Bottle PO SCH ×3 (08:00→18:27)
[2020-03-28 08:03] LABS: Basophils % (manual) 0 (0.0-2.0); Blast Cells 0; Eosinophils % (manual) 0 (0-7); Myelocytes % 0; Promyelocytes % 0; Reactive Lymphocytes 0
[2020-03-28 08:16] LABS: Calcium 7.9 mg/dL (8.5-10.1); Potassium 4.4 mmol/L (3.5-5.1)
[2020-03-28 09:00] VITALS: BP 124/55
[2020-03-28] MEDS: PANTOPRAZOLE 40 MG TAB PO SCH (09:52)
[2020-03-28] MEDS: DexAMETHasone SOD PHOS 10MG/1ML VIAL INJ IV SCH (09:52)
[2020-03-28] MEDS: POTASSIUM EFFERVESENT TAB 25 MEQ PO SCH (09:52)
[2020-03-28] MEDS: DOXYCYCLINE 100 MG TAB/CAP PO SCH ×2 (09:52→22:00)
[2020-03-28] MEDS: ZINC SULFATE 220mg CAP or TAB PO SCH (09:52)
[2020-03-28] MEDS: MAGNESIUM OXIDE 400 MG TAB PO SCH (09:52)
[2020-03-28] MEDS: FLUTICASONE PROP NASAL SPR 0.05 % (50MCG) 16GM EACHNOSTRI SCH ×2 (09:52→22:30)
[2020-03-28] MEDS: ENOXAPARIN SOD 40 MG/0.4 ML SYRINGE SC SCH (09:53)
[2020-03-28] MEDS: CHOLECALCIFEROL (VITD3) 2,000 UNIT CAP PO SCH (09:53)
[2020-03-28] MEDS: ASCORBIC ACID 500 MG TAB PO SCH ×2 (09:53→22:00)
[2020-03-28] MEDS: FUROSEMIDE 20 MG/2 ML VIAL IV SCH (10:00)
[2020-03-28] MEDS: HYDROmorphone HCL 2 MG/ML VL IV PRN ×2 (10:58→20:55)
[2020-03-28 12:27] LABS: Band Neutrophils % (manual) 5; Lymphocytes % (manual) 20 (10.0-50.0); Metamyelocytes % 1; Monocytes % (manual) 8 (0-12)
[2020-03-28] MEDS ORDERED: DOCUSATE SOD 100 MG CAP PO ONE (12:30)
[2020-03-28 13:00] VITALS: BP 106/74
[2020-03-28 17:00] VITALS: BP 119/52
[2020-03-28 22:00] VITALS: BP 141/82
[2020-03-29] VITALS (9 sets, daily range): BP systolic 114–131; BP diastolic 42–92
[2020-03-29] MEDS: HYDROmorphone HCL 2 MG/ML VL IV PRN ×3 (05:33→20:43)
[2020-03-29] MEDS: SALINE 0.65 % NASAL SPRAY 45ML BOTTLE EACHNOSTRI SCH ×4 (05:33→22:00)
[2020-03-29] MEDS ORDERED: FLEET ENEMA(ADULT) 135 ML PR ONE (07:15)
[2020-03-29] MEDS: ALBUTEROL SULF HFA 90MCG INH 200DOSE IN SCH ×3 (07:16→22:46)
[2020-03-29] MEDS: BUDESONIDE (INHALATION) 180 MCG IH IN SCH ×2 (07:16→22:46)
[2020-03-29] MEDS: Ensure HIGH Protein Chocolate 8oz Bottle PO SCH ×3 (08:00→18:00)
[2020-03-29] MEDS ORDERED: DOCUSATE SOD 100 MG CAP PO PRN (10:00)
[2020-03-29] MEDS: CHOLECALCIFEROL (VITD3) 2,000 UNIT CAP PO SCH (10:00)
[2020-03-29] MEDS: DexAMETHasone SOD PHOS 10MG/1ML VIAL INJ IV SCH (11:46)
[2020-03-29] MEDS: FLUTICASONE PROP NASAL SPR 0.05 % (50MCG) 16GM EACHNOSTRI SCH ×2 (11:46→20:44)
[2020-03-29] MEDS: MAGNESIUM OXIDE 400 MG TAB PO SCH (11:49)
[2020-03-29] MEDS: POTASSIUM EFFERVESENT TAB 25 MEQ PO SCH (11:49)
[2020-03-29] MEDS: FUROSEMIDE 20 MG/2 ML VIAL IV SCH (11:49)
[2020-03-29] MEDS: ZINC SULFATE 220mg CAP or TAB PO SCH (11:49)
[2020-03-29] MEDS: DOXYCYCLINE 100 MG TAB/CAP PO SCH ×2 (11:50→20:43)
[2020-03-29] MEDS: ASCORBIC ACID 500 MG TAB PO SCH ×2 (11:50→20:43)
[2020-03-29] MEDS: ENOXAPARIN SOD 40 MG/0.4 ML SYRINGE SC SCH (11:50)
[2020-03-29] MEDS: PANTOPRAZOLE 40 MG TAB PO SCH (11:50)
[2020-03-29] MEDS: HYDROcodone-ACET 5/325MG TAB PO PRN ×3 (13:22→23:54)
[2020-03-30 05:00] VITALS: BP 130/43
[2020-03-30] MEDS: ALBUTEROL SULF HFA 90MCG INH 200DOSE IN SCH ×3 (06:40→22:00)
[2020-03-30] MEDS: BUDESONIDE (INHALATION) 180 MCG IH IN SCH ×2 (06:40→22:00)
[2020-03-30 08:00] VITALS: BP 109/58
[2020-03-30] MEDS: HYDROmorphone HCL 2 MG/ML VL IV PRN ×2 (08:59→17:46)
[2020-03-30] MEDS: POTASSIUM EFFERVESENT TAB 25 MEQ PO SCH (09:10)
[2020-03-30] MEDS: DOXYCYCLINE 100 MG TAB/CAP PO SCH ×2 (09:10→21:20)
[2020-03-30] MEDS: MAGNESIUM OXIDE 400 MG TAB PO SCH (09:10)
[2020-03-30] MEDS: ENOXAPARIN SOD 40 MG/0.4 ML SYRINGE SC SCH (09:10)
[2020-03-30] MEDS: CHOLECALCIFEROL (VITD3) 2,000 UNIT CAP PO SCH (09:11)
[2020-03-30] MEDS: ASCORBIC ACID 500 MG TAB PO SCH ×2 (09:11→19:10)
[2020-03-30] MEDS: PANTOPRAZOLE 40 MG TAB PO SCH (09:13)
[2020-03-30] MEDS: DexAMETHasone SOD PHOS 10MG/1ML VIAL INJ IV SCH (09:14)
[2020-03-30] MEDS: FUROSEMIDE 20 MG/2 ML VIAL IV SCH (09:16)
[2020-03-30] MEDS: Ensure HIGH Protein Chocolate 8oz Bottle PO SCH ×3 (09:30→17:39)
[2020-03-30] MEDS: SALINE 0.65 % NASAL SPRAY 45ML BOTTLE EACHNOSTRI SCH ×4 (11:41→21:20)
[2020-03-30] MEDS: FLUTICASONE PROP NASAL SPR 0.05 % (50MCG) 16GM EACHNOSTRI SCH ×2 (11:42→21:20)
[2020-03-30] MEDS: ZINC SULFATE 220mg CAP or TAB PO SCH (11:42)
[2020-03-30 12:00] VITALS: BP 120/50
[2020-03-30] MEDS ORDERED: ONDANSETRON HCL 4 MG/2 ML VIAL ONE (13:20)
[2020-03-30] MEDS: ONDANSETRON HCL 4 MG/2 ML VIAL IV PRN (13:35)
[2020-03-30] MEDS: HYDROcodone-ACET 5/325MG TAB PO PRN ×2 (13:36→19:10)
[2020-03-30 16:52] VITALS: BP 103/59
[2020-03-31] MEDS ORDERED: TEMAZEPAM 15 MG CAP ONE (02:01)
[2020-03-31 05:00] VITALS: BP 101/60
[2020-03-31] MEDS: ALBUTEROL SULF HFA 90MCG INH 200DOSE IN SCH ×3 (06:02→22:03)
[2020-03-31] MEDS: BUDESONIDE (INHALATION) 180 MCG IH IN SCH ×2 (06:02→22:02)
[2020-03-31] MEDS: SALINE 0.65 % NASAL SPRAY 45ML BOTTLE EACHNOSTRI SCH ×4 (06:12→22:42)
[2020-03-31 07:16] LABS: Hemoglobin 8.6 g/dL (12.2-16.2)
[2020-03-31 07:21] LABS: Hematocrit 25.5 % (36.0-46.0); Mean Corpuscular Hemoglobin 31.4 pg (28.0-32.0); Mean Corpuscular Hgb Conc. 33.8 g/dL (32.0-36.0); Mean Corpuscular Volume 92.9 fL (80.0-100.0); Platelet Count (auto) 471 10^3/uL (140-450); Red Blood Cells 2.74 10^6/uL (4.0-5.20)
[2020-03-31 07:39] LABS: Potassium 3.7 mmol/L (3.5-5.1)
[2020-03-31 07:40] LABS: Basophils % (manual) 0 (0.0-2.0); Eosinophils % (manual) 0 (0-7); Promyelocytes % 0; Reactive Lymphocytes 0
[2020-03-31 07:45] LABS: BUN/Creatinine Ratio 32.3; Calcium 7.9 mg/dL (8.5-10.1)
[2020-03-31] MEDS: Ensure HIGH Protein Chocolate 8oz Bottle PO SCH ×3 (08:00→18:00)
[2020-03-31 08:40] VITALS: BP 113/46
[2020-03-31 08:59] LABS: Band Neutrophils % (manual) 6; Blast Cells 1; Lymphocytes % (manual) 4 (10.0-50.0); Metamyelocytes % 4; Monocytes % (manual) 4 (0-12); Myelocytes % 2
[2020-03-31] MEDS: CHOLECALCIFEROL (VITD3) 2,000 UNIT CAP PO SCH (09:56)
[2020-03-31] MEDS: DOXYCYCLINE 100 MG TAB/CAP PO SCH ×2 (09:57→22:42)
[2020-03-31] MEDS: ZINC SULFATE 220mg CAP or TAB PO SCH (09:57)
[2020-03-31] MEDS: ASCORBIC ACID 500 MG TAB PO SCH ×2 (09:57→22:42)
[2020-03-31] MEDS: PANTOPRAZOLE 40 MG TAB PO SCH (09:58)
[2020-03-31] MEDS: ENOXAPARIN SOD 40 MG/0.4 ML SYRINGE SC SCH (09:58)
[2020-03-31] MEDS: MAGNESIUM OXIDE 400 MG TAB PO SCH (09:58)
[2020-03-31] MEDS: FUROSEMIDE 20 MG/2 ML VIAL IV SCH (09:59)
[2020-03-31] MEDS: DexAMETHasone SOD PHOS 10MG/1ML VIAL INJ IV SCH (09:59)
[2020-03-31] MEDS: FLUTICASONE PROP NASAL SPR 0.05 % (50MCG) 16GM EACHNOSTRI SCH ×2 (09:59→22:41)
[2020-03-31] MEDS: POTASSIUM EFFERVESENT TAB 25 MEQ PO SCH (09:59)
[2020-03-31] MEDS: HYDROmorphone HCL 2 MG/ML VL IV PRN ×2 (11:27→20:11)
[2020-03-31 12:40] VITALS: BP 115/41
[2020-03-31 16:40] VITALS: BP 106/43
[2020-03-31 22:00] VITALS: BP 115/70
[2020-03-31] MEDS: HYDROcodone-ACET 5/325MG TAB PO PRN (22:43)
[2020-04-01] MEDS: HYDROmorphone HCL 2 MG/ML VL IV PRN (02:47)
[2020-04-01 03:32] VITALS: BP 118/70
[2020-04-01 05:00] VITALS: BP 128/56
[2020-04-01] MEDS: SALINE 0.65 % NASAL SPRAY 45ML BOTTLE EACHNOSTRI SCH ×4 (06:16→22:10)
[2020-04-01] MEDS: HYDROcodone-ACET 5/325MG TAB PO PRN (06:16)
[2020-04-01] MEDS: BUDESONIDE (INHALATION) 180 MCG IH IN SCH ×2 (06:47→21:45)
[2020-04-01] MEDS: ALBUTEROL SULF HFA 90MCG INH 200DOSE IN SCH ×2 (06:47→21:45)
[2020-04-01] MEDS: Ensure HIGH Protein Chocolate 8oz Bottle PO SCH ×3 (08:00→18:18)
[2020-04-01 08:51] VITALS: BP 118/58
[2020-04-01] MEDS: FLUTICASONE PROP NASAL SPR 0.05 % (50MCG) 16GM EACHNOSTRI SCH ×2 (09:44→22:10)
[2020-04-01] MEDS: DexAMETHasone SOD PHOS 10MG/1ML VIAL INJ IV SCH (09:45)
[2020-04-01] MEDS: PANTOPRAZOLE 40 MG TAB PO SCH (09:45)
[2020-04-01] MEDS: CHOLECALCIFEROL (VITD3) 2,000 UNIT CAP PO SCH (09:45)
[2020-04-01] MEDS: ZINC SULFATE 220mg CAP or TAB PO SCH (09:45)
[2020-04-01] MEDS: FUROSEMIDE 20 MG/2 ML VIAL IV SCH (09:45)
[2020-04-01] MEDS: MAGNESIUM OXIDE 400 MG TAB PO SCH (09:45)
[2020-04-01] MEDS: DOXYCYCLINE 100 MG TAB/CAP PO SCH ×2 (09:45→22:10)
[2020-04-01] MEDS: ENOXAPARIN SOD 40 MG/0.4 ML SYRINGE SC SCH (09:45)
[2020-04-01] MEDS: POTASSIUM EFFERVESENT TAB 25 MEQ PO SCH (09:45)
[2020-04-01] MEDS: ASCORBIC ACID 500 MG TAB PO SCH ×2 (09:45→22:11)
[2020-04-01 13:00] VITALS: BP 127/48
[2020-04-01 17:00] VITALS: BP 117/43
[2020-04-01] MEDS: MORPHINE SULF INJ 2 MG/ML SYRINGE 1ML IV PRN (18:17)
[2020-04-02] MEDS: MORPHINE SULF INJ 2 MG/ML SYRINGE 1ML IV PRN ×4 (03:45→20:51)
[2020-04-02 05:00] VITALS: BP 136/40
[2020-04-02] MEDS: BUDESONIDE (INHALATION) 180 MCG IH IN SCH ×2 (06:10→19:48)
[2020-04-02] MEDS: ALBUTEROL SULF HFA 90MCG INH 200DOSE IN SCH (06:10)
[2020-04-02] MEDS: SALINE 0.65 % NASAL SPRAY 45ML BOTTLE EACHNOSTRI SCH ×4 (06:55→21:16)
[2020-04-02 08:00] VITALS: BP 117/52
[2020-04-02 09:00] VITALS: BP 117/52
[2020-04-02] MEDS: DexAMETHasone SOD PHOS 10MG/1ML VIAL INJ IV SCH (10:28)
[2020-04-02] MEDS: FLUTICASONE PROP NASAL SPR 0.05 % (50MCG) 16GM EACHNOSTRI SCH ×2 (10:28→21:16)
[2020-04-02] MEDS: FUROSEMIDE 20 MG/2 ML VIAL IV SCH (10:28)
[2020-04-02] MEDS: ZINC SULFATE 220mg CAP or TAB PO SCH (10:28)
[2020-04-02] MEDS: Ensure HIGH Protein Chocolate 8oz Bottle PO SCH ×3 (10:28→18:49)
[2020-04-02] MEDS: FLORASTOR (S. BOULARDII) 250 MG CAP PO SCH (10:29)
[2020-04-02] MEDS: PANTOPRAZOLE 40 MG TAB PO SCH (10:29)
[2020-04-02] MEDS: DOXYCYCLINE 100 MG TAB/CAP PO SCH ×2 (10:29→21:16)
[2020-04-02] MEDS: POTASSIUM EFFERVESENT TAB 25 MEQ PO SCH (10:29)
[2020-04-02] MEDS: ASCORBIC ACID 500 MG TAB PO SCH ×2 (10:29→21:17)
[2020-04-02] MEDS: MAGNESIUM OXIDE 400 MG TAB PO SCH (10:29)
[2020-04-02] MEDS: ENOXAPARIN SOD 40 MG/0.4 ML SYRINGE SC SCH (10:30)
[2020-04-02] MEDS: CHOLECALCIFEROL (VITD3) 2,000 UNIT CAP PO SCH (10:30)
[2020-04-02 12:48] VITALS: BP 107/57
[2020-04-02 16:59] VITALS: BP 117/61
[2020-04-02 20:00] VITALS: BP 114/58
[2020-04-02] MEDS: ALBUTEROL SULF HFA 90MCG INH 200DOSE IN PRN (21:21)
[2020-04-03] VITALS (7 sets, daily range): BP systolic 86–142; BP diastolic 31–68
[2020-04-03] MEDS: HYDROcodone-ACET 5/325MG TAB PO PRN ×4 (00:42→18:41)
[2020-04-03] MEDS: ONDANSETRON HCL 4 MG/2 ML VIAL IV PRN (00:42)
[2020-04-03] MEDS: MORPHINE SULF INJ 2 MG/ML SYRINGE 1ML IV PRN ×2 (03:15→12:15)
[2020-04-03] MEDS: SALINE 0.65 % NASAL SPRAY 45ML BOTTLE EACHNOSTRI SCH ×4 (05:39→21:47)
[2020-04-03 07:13] LABS: Basophils # (auto) 0 10 ^3/uL (0-0.2); Basophils % (auto) 0.2 % (0.0-2.0); Eosinophils # (auto) 0 10 ^3/uL (0-0.8); Hematocrit 26.9 % (36.0-46.0); Hemoglobin 8.7 g/dL (12.2-16.2); Lymphocytes # (auto) 0.6 10 ^3/uL (0.4-5.4); Lymphocytes % (auto) 8.1 % (10.0-50.0); Mean Corpuscular Hemoglobin 29.7 pg (28.0-32.0); Mean Corpuscular Hgb Conc. 32.4 g/dL (32.0-36.0); Mean Corpuscular Volume 91.8 fL (80.0-100.0); Monocytes # (auto) 0.4 10 ^3/uL (0-1.3); Monocytes % (auto) 5.2 % (0.0-12.0); Neutrophils # (auto) 6.1 10 ^3/uL (1.6-8.6); Neutrophils % (auto) 86.5 % (37.0-80.0); Platelet Count (auto) 297 10^3/uL (140-450); Red Blood Cells 2.93 10^6/uL (4.0-5.20); Red Cell Distribution Width 15.9 % (11.8-14.3); White Blood Cell 7.1 10^3/uL (4.4-10.8)
[2020-04-03 07:42] LABS: Potassium 3.8 mmol/L (3.5-5.1)
[2020-04-03 07:49] LABS: BUN/Creatinine Ratio 35.1; Calcium 7.7 mg/dL (8.5-10.1)
[2020-04-03] MEDS: BUDESONIDE (INHALATION) 180 MCG IH IN SCH ×2 (07:56→23:13)
[2020-04-03] MEDS: ALBUTEROL SULF HFA 90MCG INH 200DOSE IN PRN (07:56)
[2020-04-03] MEDS: Ensure HIGH Protein Chocolate 8oz Bottle PO SCH ×3 (09:55→18:07)
[2020-04-03] MEDS: FLUTICASONE PROP NASAL SPR 0.05 % (50MCG) 16GM EACHNOSTRI SCH ×2 (09:55→21:47)
[2020-04-03] MEDS: ZINC SULFATE 220mg CAP or TAB PO SCH (09:56)
[2020-04-03] MEDS: FUROSEMIDE 20 MG/2 ML VIAL IV SCH (09:56)
[2020-04-03] MEDS: FLORASTOR (S. BOULARDII) 250 MG CAP PO SCH (09:56)
[2020-04-03] MEDS: POTASSIUM EFFERVESENT TAB 25 MEQ PO SCH (09:56)
[2020-04-03] MEDS: DexAMETHasone SOD PHOS 10MG/1ML VIAL INJ IV SCH (09:56)
[2020-04-03] MEDS: CHOLECALCIFEROL (VITD3) 2,000 UNIT CAP PO SCH (09:57)
[2020-04-03] MEDS: DOXYCYCLINE 100 MG TAB/CAP PO SCH ×2 (09:57→21:47)
[2020-04-03] MEDS: ASCORBIC ACID 500 MG TAB PO SCH ×2 (09:57→21:47)
[2020-04-03] MEDS: MAGNESIUM OXIDE 400 MG TAB PO SCH (09:57)
[2020-04-03] MEDS: PANTOPRAZOLE 40 MG TAB PO SCH (09:57)
[2020-04-03] MEDS: ENOXAPARIN SOD 40 MG/0.4 ML SYRINGE SC SCH (09:58)
[2020-04-04] MEDS: ALBUTEROL SULF HFA 90MCG INH 200DOSE IN PRN ×3 (01:25→23:00)
[2020-04-04 05:00] VITALS: BP 121/50
[2020-04-04] MEDS: SALINE 0.65 % NASAL SPRAY 45ML BOTTLE EACHNOSTRI SCH ×4 (06:17→21:35)
[2020-04-04] MEDS: BUDESONIDE (INHALATION) 180 MCG IH IN SCH ×2 (07:40→22:00)
[2020-04-04 08:00] VITALS: BP 110/42
[2020-04-04 08:33] VITALS: BP 110/42
[2020-04-04] MEDS: DexAMETHasone SOD PHOS 10MG/1ML VIAL INJ IV SCH (10:35)
[2020-04-04] MEDS: FLORASTOR (S. BOULARDII) 250 MG CAP PO SCH (10:35)
[2020-04-04] MEDS: FLUTICASONE PROP NASAL SPR 0.05 % (50MCG) 16GM EACHNOSTRI SCH ×2 (10:35→21:35)
[2020-04-04] MEDS: MAGNESIUM OXIDE 400 MG TAB PO SCH (10:35)
[2020-04-04] MEDS: Ensure HIGH Protein Chocolate 8oz Bottle PO SCH ×3 (10:35→18:01)
[2020-04-04] MEDS: ZINC SULFATE 220mg CAP or TAB PO SCH (10:35)
[2020-04-04] MEDS: DOXYCYCLINE 100 MG TAB/CAP PO SCH (10:36)
[2020-04-04] MEDS: ASCORBIC ACID 500 MG TAB PO SCH ×2 (10:36→21:35)
[2020-04-04] MEDS: PANTOPRAZOLE 40 MG TAB PO SCH (10:36)
[2020-04-04] MEDS: CHOLECALCIFEROL (VITD3) 2,000 UNIT CAP PO SCH (10:36)
[2020-04-04] MEDS: ENOXAPARIN SOD 40 MG/0.4 ML SYRINGE SC SCH (10:37)
[2020-04-04] MEDS: MORPHINE SULF INJ 2 MG/ML SYRINGE 1ML IV PRN ×3 (10:37→23:00)
[2020-04-04 12:26] VITALS: BP 115/48
[2020-04-04] MEDS: HYDROcodone-ACET 5/325MG TAB PO PRN ×2 (13:27→19:58)
[2020-04-04 16:55] VITALS: BP 102/42
[2020-04-04 22:00] VITALS: BP 109/48
[2020-04-05] MEDS: HYDROcodone-ACET 5/325MG TAB PO PRN ×2 (00:16→05:41)
[2020-04-05] MEDS: MORPHINE SULF INJ 2 MG/ML SYRINGE 1ML IV PRN ×2 (03:12→22:04)
[2020-04-05 05:00] VITALS: BP 110/36
[2020-04-05] MEDS: SALINE 0.65 % NASAL SPRAY 45ML BOTTLE EACHNOSTRI SCH ×4 (05:41→22:04)
[2020-04-05 07:26] LABS: Potassium 3.8 mmol/L (3.5-5.1)
[2020-04-05 07:32] LABS: Albumin 2.1 g/dL (3.4-5.0); BUN/Creatinine Ratio 37.1; Bilirubin, Total 0.9 mg/dL (0.2-1.0); Calcium 7.9 mg/dL (8.5-10.1); Magnesium 2.2 mg/dL (1.6-2.6); Total Protein 5.8 g/dL (6.4-8.2)
[2020-04-05] MEDS: BUDESONIDE (INHALATION) 180 MCG IH IN SCH ×2 (08:12→21:41)
[2020-04-05 09:00] VITALS: BP 100/40
[2020-04-05] MEDS: FLORASTOR (S. BOULARDII) 250 MG CAP PO SCH (10:40)
[2020-04-05] MEDS: MAGNESIUM OXIDE 400 MG TAB PO SCH (10:40)
[2020-04-05] MEDS: FLUTICASONE PROP NASAL SPR 0.05 % (50MCG) 16GM EACHNOSTRI SCH ×2 (10:40→22:04)
[2020-04-05] MEDS: ZINC SULFATE 220mg CAP or TAB PO SCH (10:40)
[2020-04-05] MEDS: ASCORBIC ACID 500 MG TAB PO SCH ×2 (10:40→22:04)
[2020-04-05] MEDS: PANTOPRAZOLE 40 MG TAB PO SCH (10:40)
[2020-04-05] MEDS: Ensure HIGH Protein Chocolate 8oz Bottle PO SCH ×3 (10:40→18:22)
[2020-04-05] MEDS: ENOXAPARIN SOD 40 MG/0.4 ML SYRINGE SC SCH (10:41)
[2020-04-05] MEDS: CHOLECALCIFEROL (VITD3) 2,000 UNIT CAP PO SCH (10:41)
[2020-04-05 13:00] VITALS: BP 127/45
[2020-04-05 17:00] VITALS: BP 109/43
[2020-04-05] MEDS: ALBUTEROL SULF HFA 90MCG INH 200DOSE IN PRN (21:41)
[2020-04-05 22:00] VITALS: BP 109/42
[2020-04-06 05:00] VITALS: BP 104/46
[2020-04-06] MEDS: SALINE 0.65 % NASAL SPRAY 45ML BOTTLE EACHNOSTRI SCH ×4 (05:58→22:39)
[2020-04-06] MEDS: BUDESONIDE (INHALATION) 180 MCG IH IN SCH ×2 (06:51→21:22)
[2020-04-06] MEDS: Ensure HIGH Protein Chocolate 8oz Bottle PO SCH ×3 (08:00→18:00)
[2020-04-06 08:57] VITALS: BP 101/41
[2020-04-06] MEDS: DOCUSATE ORAL LIQUID 100 MG/10 ML UD PO SCH ×2 (10:00→22:00)
[2020-04-06] MEDS: CHOLECALCIFEROL (VITD3) 2,000 UNIT CAP PO SCH (10:00)
[2020-04-06] MEDS: ASCORBIC ACID 500 MG TAB PO SCH ×2 (10:00→22:40)
[2020-04-06] MEDS: FLORASTOR (S. BOULARDII) 250 MG CAP PO SCH (10:00)
[2020-04-06] MEDS: ZINC SULFATE 220mg CAP or TAB PO SCH (10:00)
[2020-04-06] MEDS: PANTOPRAZOLE 40 MG TAB PO SCH (10:00)
[2020-04-06] MEDS: FLUTICASONE PROP NASAL SPR 0.05 % (50MCG) 16GM EACHNOSTRI SCH ×2 (10:00→22:39)
[2020-04-06] MEDS: MAGNESIUM OXIDE 400 MG TAB PO SCH (10:00)
[2020-04-06] MEDS: ENOXAPARIN SOD 40 MG/0.4 ML SYRINGE SC SCH (10:00)
[2020-04-06] MEDS ORDERED: POTASSIUM EFFERVESENT TAB 25 MEQ PO ONE (12:30)
[2020-04-06] MEDS ORDERED: FUROSEMIDE 20 MG/2 ML VIAL IV ONE (12:30)
[2020-04-06] MEDS ORDERED: levoFLOXacin 500MG 100 ML IV ONE (12:30)
[2020-04-06 13:00] VITALS: BP 106/46
[2020-04-06] MEDS: MORPHINE SULF INJ 2 MG/ML SYRINGE 1ML IV PRN (14:34)
[2020-04-06 17:00] VITALS: BP 103/40
[2020-04-06] MEDS: ALBUTEROL SULF HFA 90MCG INH 200DOSE IN PRN (21:22)
[2020-04-06 22:00] VITALS: BP 134/44
[2020-04-06] MEDS: diphenhdrAMINE HCL 50 MG/1 ML VL IV PRN (22:51)
[2020-04-07] MEDS: SALINE 0.65 % NASAL SPRAY 45ML BOTTLE EACHNOSTRI SCH ×4 (05:43→22:31)
[2020-04-07 05:56] VITALS: BP 114/42
[2020-04-07] MEDS: Ensure HIGH Protein Chocolate 8oz Bottle PO SCH ×3 (08:00→18:00)
[2020-04-07 08:11] LABS: Basophils # (auto) 0 10 ^3/uL (0-0.2); Basophils % (auto) 0.1 % (0.0-2.0); Eosinophils # (auto) 0 10 ^3/uL (0-0.8); Eosinophils % (auto) 0.4 % (0.0-7.0); Hematocrit 25.9 % (36.0-46.0); Hemoglobin 8.6 g/dL (12.2-16.2); Lymphocytes # (auto) 0.9 10 ^3/uL (0.4-5.4); Lymphocytes % (auto) 10.4 % (10.0-50.0); Mean Corpuscular Hemoglobin 30.1 pg (28.0-32.0); Mean Corpuscular Hgb Conc. 33.3 g/dL (32.0-36.0); Mean Corpuscular Volume 90.5 fL (80.0-100.0); Monocytes # (auto) 0.6 10 ^3/uL (0-1.3); Monocytes % (auto) 7.1 % (0.0-12.0); Neutrophils # (auto) 7.2 10 ^3/uL (1.6-8.6); Platelet Count (auto) 273 10^3/uL (140-450); Red Blood Cells 2.86 10^6/uL (4.0-5.20); Red Cell Distribution Width 15.8 % (11.8-14.3); White Blood Cell 8.8 10^3/uL (4.4-10.8)
[2020-04-07] MEDS: BUDESONIDE (INHALATION) 180 MCG IH IN SCH ×2 (08:13→23:09)
[2020-04-07] MEDS: ALBUTEROL SULF HFA 90MCG INH 200DOSE IN PRN ×2 (08:13→23:09)
[2020-04-07 08:43] LABS: Potassium 3.5 mmol/L (3.5-5.1)
[2020-04-07 08:48] LABS: BUN/Creatinine Ratio 29.3; Calcium 8.3 mg/dL (8.5-10.1)
[2020-04-07 09:00] VITALS: BP 110/90
[2020-04-07] MEDS: PANTOPRAZOLE 40 MG TAB PO SCH (10:25)
[2020-04-07] MEDS: MAGNESIUM OXIDE 400 MG TAB PO SCH (10:25)
[2020-04-07] MEDS: DOCUSATE ORAL LIQUID 100 MG/10 ML UD PO SCH ×2 (10:25→22:00)
[2020-04-07] MEDS: FLORASTOR (S. BOULARDII) 250 MG CAP PO SCH (10:25)
[2020-04-07] MEDS: ZINC SULFATE 220mg CAP or TAB PO SCH (10:25)
[2020-04-07] MEDS: ASCORBIC ACID 500 MG TAB PO SCH ×2 (10:25→22:31)
[2020-04-07] MEDS: levoFLOXacin 250MG 50 ML IV SCH (10:25)
[2020-04-07] MEDS: CHOLECALCIFEROL (VITD3) 2,000 UNIT CAP PO SCH (10:26)
[2020-04-07] MEDS: ENOXAPARIN SOD 40 MG/0.4 ML SYRINGE SC SCH (10:26)
[2020-04-07] MEDS: FLUTICASONE PROP NASAL SPR 0.05 % (50MCG) 16GM EACHNOSTRI SCH ×2 (10:51→22:30)
[2020-04-07 13:00] VITALS: BP 125/51
[2020-04-07] MEDS ORDERED: POTASSIUM EFFERVESENT TAB 25 MEQ PO ONE (13:00)
[2020-04-07] MEDS ORDERED: FUROSEMIDE 20 MG/2 ML VIAL IV ONE (13:00)
[2020-04-07] MEDS ORDERED: DexAMETHasone SOD PHOS 4 MG/1ML SDV INJ IV ONE (13:00)
[2020-04-07] MEDS: MORPHINE SULF INJ 2 MG/ML SYRINGE 1ML IV PRN ×2 (15:09→21:05)
[2020-04-07 17:00] VITALS: BP 121/50
[2020-04-07 22:33] VITALS: BP 109/43
[2020-04-08] MEDS: MORPHINE SULF INJ 2 MG/ML SYRINGE 1ML IV PRN (02:49)
[2020-04-08 05:34] VITALS: BP 105/69
[2020-04-08] MEDS: SALINE 0.65 % NASAL SPRAY 45ML BOTTLE EACHNOSTRI SCH ×4 (06:01→22:23)
[2020-04-08] MEDS: Ensure HIGH Protein Chocolate 8oz Bottle PO SCH ×3 (08:00→18:00)
[2020-04-08 09:00] VITALS: BP 108/40
[2020-04-08] MEDS: ENOXAPARIN SOD 40 MG/0.4 ML SYRINGE SC SCH (10:00)
[2020-04-08] MEDS: BUDESONIDE (INHALATION) 180 MCG IH IN SCH ×2 (10:00→20:40)
[2020-04-08] MEDS: MAGNESIUM OXIDE 400 MG TAB PO SCH (10:00)
[2020-04-08] MEDS: CHOLECALCIFEROL (VITD3) 2,000 UNIT CAP PO SCH (10:00)
[2020-04-08] MEDS: ZINC SULFATE 220mg CAP or TAB PO SCH (10:00)
[2020-04-08] MEDS: DOCUSATE ORAL LIQUID 100 MG/10 ML UD PO SCH ×2 (10:00→22:24)
[2020-04-08] MEDS: FLORASTOR (S. BOULARDII) 250 MG CAP PO SCH (10:00)
[2020-04-08] MEDS: PANTOPRAZOLE 40 MG TAB PO SCH (10:00)
[2020-04-08] MEDS: ASCORBIC ACID 500 MG TAB PO SCH ×2 (10:00→22:24)
[2020-04-08] MEDS: DexAMETHasone SOD PHOS 10MG/1ML VIAL INJ IV SCH (11:20)
[2020-04-08] MEDS: FLUTICASONE PROP NASAL SPR 0.05 % (50MCG) 16GM EACHNOSTRI SCH ×2 (11:20→22:23)
[2020-04-08] MEDS: levoFLOXacin 250MG 50 ML IV SCH (11:21)
[2020-04-08 12:59] VITALS: BP 116/48
[2020-04-08 17:00] VITALS: BP 119/52
[2020-04-08] MEDS: ALBUTEROL SULF HFA 90MCG INH 200DOSE IN PRN (20:39)
[2020-04-08 23:53] VITALS: BP 116/46
[2020-04-09] MEDS: SALINE 0.65 % NASAL SPRAY 45ML BOTTLE EACHNOSTRI SCH ×2 (05:38→13:23)
[2020-04-09 06:33] VITALS: BP 123/46
[2020-04-09] MEDS: Ensure HIGH Protein Chocolate 8oz Bottle PO SCH ×2 (08:00→12:00)
[2020-04-09 08:56] VITALS: BP 127/44
[2020-04-09 09:00] VITALS: BP 127/44
[2020-04-09] MEDS: BUDESONIDE (INHALATION) 180 MCG IH IN SCH (09:57)
[2020-04-09] MEDS: ALBUTEROL SULF HFA 90MCG INH 200DOSE IN PRN (09:58)
[2020-04-09] MEDS: FLORASTOR (S. BOULARDII) 250 MG CAP PO SCH (10:00)
[2020-04-09] MEDS: ASCORBIC ACID 500 MG TAB PO SCH (10:00)
[2020-04-09] MEDS: MAGNESIUM OXIDE 400 MG TAB PO SCH (10:00)
[2020-04-09] MEDS: DOCUSATE ORAL LIQUID 100 MG/10 ML UD PO SCH (10:00)
[2020-04-09] MEDS: ZINC SULFATE 220mg CAP or TAB PO SCH (10:00)
[2020-04-09] MEDS: PANTOPRAZOLE 40 MG TAB PO SCH (10:00)
[2020-04-09] MEDS: CHOLECALCIFEROL (VITD3) 2,000 UNIT CAP PO SCH (10:00)
[2020-04-09] MEDS: FLUTICASONE PROP NASAL SPR 0.05 % (50MCG) 16GM EACHNOSTRI SCH (10:29)
[2020-04-09] MEDS: levoFLOXacin 250MG 50 ML IV SCH (10:31)
[2020-04-09] MEDS: ENOXAPARIN SOD 40 MG/0.4 ML SYRINGE SC SCH (10:33)
[2020-04-09] MEDS: DexAMETHasone SOD PHOS 10MG/1ML VIAL INJ IV SCH (10:34)
== END 2020-04-09 13:44 | disposition hospice, inpatient (51) | DRG 853 ==
LOC: EDBD 16:38 → ER 16:42 → TELE 21:56 → TELE-WESTW 23:52 → TELE-EAST 03-21 21:20
PROVIDERS: ADMIT Nurse Practitioner Family; ATTEND Internal Medicine
PROC: 30233N1 Transfusion of Nonautologous Red Blood Cells into Peripheral Vein, Percutaneous Approach (ICD-10-PCS; 2020-03-17)
PROC: 0QS604Z Reposition Right Upper Femur with Internal Fixation Device, Open Approach (ICD-10-PCS; principal; 2020-03-19 16:05)
PROC: XW033E5 Introduction of Remdesivir Anti-infective into Peripheral Vein, Percutaneous Approach, New Technology Group 5 (ICD-10-PCS; 2020-03-22)
PROC: XW13325 Transfusion of Convalescent Plasma (Nonautologous) into Peripheral Vein, Percutaneous Approach, New Technology Group 5 (ICD-10-PCS; 2020-03-23)
DX: A41.89 Other specified sepsis (principal); S72.141A Displaced intertrochanteric fracture of right femur, initial encounter for closed fracture; I21.A1 Myocardial infarction type 2; U07.1 COVID-19; J12.89 Other viral pneumonia; I50.31 Acute diastolic (congestive) heart failure; J96.01 Acute respiratory failure with hypoxia; N39.0 Urinary tract infection, site not specified; J91.8 Pleural effusion in other conditions classified elsewhere; J98.11 Atelectasis; Z51.5 Encounter for palliative care; R73.9 Hyperglycemia, unspecified; I70.0 Atherosclerosis of aorta; K57.30 Diverticulosis of large intestine without perforation or abscess without bleeding; E87.6 Hypokalemia; E78.00 Pure hypercholesterolemia, unspecified; I44.7 Left bundle-branch block, unspecified; E66.9 Obesity, unspecified; D50.0 Iron deficiency anemia secondary to blood loss (chronic); E78.5 Hyperlipidemia, unspecified; M81.0 Age-related osteoporosis without current pathological fracture; I11.0 Hypertensive heart disease with heart failure; W01.0XXA Fall on same level from slipping, tripping and stumbling without subsequent striking against object, initial encounter; Z88.0 Allergy status to penicillin; Y93.89 Activity, other specified; Y92.89 Other specified places as the place of occurrence of the external cause; Y99.8 Other external cause status; Z82.49 Family history of ischemic heart disease and other diseases of the circulatory system; Z68.32 Body mass index [BMI] 32.0-32.9, adult
CPT/HCPCS: 36415; 36600; 70450; 71045; 71275; 72192; 73502; 76001; 78452; 80048; 80053; 80061; 81001; 82805; 82962; 83036; 83735; 83880; 84484; 85007; 85014; 85018; 85025; 85027; 85379; 85610; 85730; 86850; 86900; 86901; 86920; 87081; 87205; 87493; 93005; 93017; 93306; 93970; 94640; 96361; 96374; 96375; 97110; 97163; 97530; A4565; C9113; G0378; J0153; J0171; J1100; J1956; J2001; J2250; J2405; J3490